=== PATIENT | male | born 1990 | race Two or more races ===

== ENCOUNTER 2017-04-09 22:49 | Emergency (ER) | payer OTHER ==
[~2017-04-09] VITALS: Ht 182.9 cm; Wt 108.0 kg
[2017-04-09] MEDS ORDERED: AUGMENTIN 875-1 EAC1 ORAL (23:16)
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
[2017-04-09] MEDS: Bacitracin Oint UD TOPIC ONE (23:23)
[2017-04-09] MEDS: Tetanus/Diptheria/Pertussis Vaccine 0.5ml Syr IM ONE (23:24)
[2017-04-09 23:30] VITALS: BP 130/96
== END 2017-04-09 23:20 | disposition home or self-care (01) ==
LOC: EMR 22:59
DX: S60.414A Abrasion of right ring finger, initial encounter (principal); W50.3XXA Accidental bite by another person, initial encounter; Y92.89 Other specified places as the place of occurrence of the external cause; Y99.0 Civilian activity done for income or pay; Z23 Encounter for immunization
CPT/HCPCS: 90471; 90715; 99283